=== PATIENT | female | born 1955 | race Caucasian/White ===

== ENCOUNTER 2024-02-23 19:25 | Emergency (ER) | payer OTHER ==
[2024-02-23 19:36] VITALS: RESP 16; TEMP 97.6; BMI 25.4
[2024-02-23] MEDS ORDERED: FOLIC ACID 5 MG/1 ML ONE (19:59)
[2024-02-23] MEDS ORDERED: THIAMINE HCL 200 MG/2 ML VIAL ONE (20:00)
[2024-02-23] MEDS ORDERED: MAGNESIUM 1GM/D5W - 1 GM/100 ML IVPB IVPB ONE (20:00)
[2024-02-23] MEDS ORDERED: MULTIVIT INJ. ADULT COMBO WITH VIT K 1 COMBO 10 ML VIAL IV ONE (20:01)
[2024-02-23] MEDS: FOLIC ACID INJECTION - 1 MG, THIAMINE HCL 100 MG, MULTIVIT INJECTION ADULT 10 ML in SOD... IVPB ONE (20:13)
[2024-02-23] MEDS: MAGNESIUM SULF 50% (8.12 MEQ/2 ML-1 GM VIAL) IVPB ONE (20:13)
[2024-02-23 20:30] LABS: HEMATOCRIT 39.9 % (32.4-45.2); HEMOGLOBIN 12.9 G/dL (10.7-15.3); MCH 29.8 pg (25.7-33.7); MCHC 32.4 g/dl (32.0-36.0); MEAN CELL VOLUME 92.2 fl (80-96); MEAN PLT VOLUME 8.5 fl (7.5-11.1); PLATELET COUNT 199.8 10^3/uL (134-434); RBC 4.33 10^6/uL (3.60-5.2); RDW 14.9 % (11.6-15.6); WHITE BLOOD COUNT 5.5 10^3/uL (4.0-10.8)
[2024-02-23 20:33] LABS: INR 0.99 (0.83-1.09); PROTHROMBIN TIME (PATIENT) 11.3 SEC (9.7-13.0)
[2024-02-23 20:45] LABS: ALBUMIN 4.1 g/dl (3.4-5.0); BILIRUBIN,TOTAL 0.3 mg/dl (0.2-1); CALCIUM 10.1 mg/dl (8.5-10.1); CREATININE 0.6 mg/dl (0.6-1.3); TOT PROT 6.6 g/dl (6.4-8.2)
[2024-02-23 21:22] LABS: PLATELET ESTIMATE ADEQUATE
[2024-02-23 22:15] VITALS: BP 124/63; PULSE 75
== END 2024-02-23 22:15 | disposition home or self-care (01) ==
LOC: FER 19:25
PROC: 3E033GC Introduction of Other Therapeutic Substance into Peripheral Vein, Percutaneous Approach (ICD-10-PCS; principal; 2024-02-23)
DX: R00.1 Bradycardia, unspecified (principal); R42 Dizziness and giddiness; R35.0 Frequency of micturition
CPT/HCPCS: 36415; 71045-TC-FY; 80053; 81003; 81015; 84484; 85027; 85610; 93005; 99285-25